=== PATIENT | female | born 1950 | race Caucasian/White ===

== ENCOUNTER 2018-01-16 13:55 | Outpatient (CLI) | payer OTHER ==
[~2018-01-16 13:55] MED LIST: FOLBIC RF TABL1 EACH PO; SYNTHROID100 MCG PO; SYNTHROID112 MCG PO; VITAMIN C100 MG PO; VITAMIN D400 UNI2 PO
== END 2018-01-16 14:00 | disposition home or self-care (01) ==
LOC: SONOGRAMA 13:55
DX: E04.8 Other specified nontoxic goiter (principal)

== ENCOUNTER 2018-01-25 11:41 | Outpatient (CLI) | payer OTHER | END 2018-01-25 11:55 | disposition home or self-care (01) | LOC: NUCLEAR 11:41 | DX: M81.0 Age-related osteoporosis without current pathological fracture (principal) ==

== ENCOUNTER 2018-04-03 12:25 | Outpatient (CLI) | payer OTHER | END 2018-04-03 12:34 | disposition home or self-care (01) | LOC: MRI 12:25 | DX: R42 Dizziness and giddiness (principal); H90.11 Conductive hearing loss, unilateral, right ear, with unrestricted hearing on the contralateral side | CPT/HCPCS: 70553; A9579 ==

== ENCOUNTER 2018-10-12 10:52 | Outpatient (CLI) | payer OTHER | END 2018-10-12 10:55 | disposition home or self-care (01) | LOC: MAMO-SONO 10:52 | DX: Z12.31 Encounter for screening mammogram for malignant neoplasm of breast (principal); Z87.898 Personal history of other specified conditions; C50.112 Malignant neoplasm of central portion of left female breast; N60.11 Diffuse cystic mastopathy of right breast; N60.12 Diffuse cystic mastopathy of left breast ==

== ENCOUNTER 2019-10-15 10:34 | Outpatient (CLI) | payer OTHER | END 2019-10-15 10:42 | disposition home or self-care (01) | LOC: MAMO-SONO 10:34 | DX: Z12.31 Encounter for screening mammogram for malignant neoplasm of breast (principal); Z87.898 Personal history of other specified conditions; C50.112 Malignant neoplasm of central portion of left female breast; N60.11 Diffuse cystic mastopathy of right breast; N60.12 Diffuse cystic mastopathy of left breast ==

== ENCOUNTER 2020-10-20 11:27 | Outpatient (CLI) | payer OTHER | END 2020-10-20 11:30 | disposition home or self-care (01) | LOC: MAMO-SONO 11:27 | PROVIDERS: ATTEND Surgery | DX: R92.0 Mammographic microcalcification found on diagnostic imaging of breast (principal); N60.11 Diffuse cystic mastopathy of right breast; N60.12 Diffuse cystic mastopathy of left breast; N64.59 Other signs and symptoms in breast ==

== ENCOUNTER 2021-07-19 08:00 | Outpatient (CLI) | payer OTHER | END 2021-07-19 08:30 | disposition home or self-care (01) | LOC: PPH VACUNA 08:00 | PROVIDERS: ATTEND Emergency Medicine Pediatric Emergency Medicine | DX: Z23 Encounter for immunization (principal) ==

== ENCOUNTER 2021-10-21 09:36 | Outpatient (CLI) | payer OTHER | END 2021-10-21 09:40 | disposition home or self-care (01) | LOC: MAMO-SONO 09:36 | PROVIDERS: ATTEND Surgery | DX: N60.11 Diffuse cystic mastopathy of right breast (principal); N60.12 Diffuse cystic mastopathy of left breast; C50.412 Malignant neoplasm of upper-outer quadrant of left female breast; R92.1 Mammographic calcification found on diagnostic imaging of breast; Z12.31 Encounter for screening mammogram for malignant neoplasm of breast ==

== ENCOUNTER 2023-12-08 07:14 | Outpatient (CLI) | payer OTHER | END 2023-12-08 07:15 | disposition home or self-care (01) | LOC: TOM 07:14 | PROVIDERS: ATTEND Internal Medicine Gastroenterology | DX: R10.31 Right lower quadrant pain (principal) ==